=== PATIENT | male | born 1970 | race Caucasian/White ===

== ENCOUNTER 2017-02-02 07:32 | Inpatient (IN) | payer MEDICAID ==
[~2017-02-02] VITALS: Ht 170.2 cm; Wt 74.2 kg
[2017-02-02] VITALS (24 sets, daily range): BP systolic 114–152; BP diastolic 52–75; PULSE 70–92; RESP 12–25; TEMP 98.6; Ht 170.2 cm; Wt 74.2 kg
--- NOTE | 2017-02-02 08:36 | RADRPT ---
PROCEDURE: CT abdomen and pelvis without contrast. CLINICAL INDICATION: Abdominal pain. TECHNIQUE: CT scan of the abdomen and pelvis without contrast was performed on a multi-slice CT [facility] . Sagittal and coronal reformatted images were obtained from the axial source images. One or more of the following dose reduction techniques were used: - Automated exposure control. - Adjustment of the mA and/or kV according to patient size. Use of iterative reconstruction technique. DLP 589.2 mGycm. CTDIvol 9.7 mGy COMPARISON: None FINDINGS: The lung bases are clear. There is limited evaluation of the solid viscera for lack of IV contrast. There is a dilated tubular structure extending from the cecum consistent with a likely enlarged appe ndix and measures up to 12 mm in diameter. It has adjacent trace fat stranding and fluid. There is no CT evidence for free air or organized fluid collection to suggest perforation at this time. Th ere is no evidence of an obstruction. The appendix is located inferior to the cecum along the infer ior pericolic gutter. There is normal density of the liver with no gross focal lesion or biliary ductal dilatation. The gallbladder is unremarkable without inflammation. The spleen is unremarkable without mass. The adrenal glands are within normal limits without mass. The kidneys are symmetric bilaterally with no evidence of renal or ureteral calculi. There is no hy dronephrosis or perinephric stranding. The pancreas is unremarkable without focal lesion or surrounding inflammatory changes. There are no enlarged lymph nodes. There is a calcified lymph nodes seen anterior to the IVC. The aorta is unremarkable and there is no acute osseous abnormality. Degenerative changes are seen i n the lumbar spine. The prostate is grossly unremarkable. There are trace bilateral fat containing inguinal hernias pres ent. IMPRESSION: Findings are consistent with acute appendicitis. The appendix is located inferior to the cecum and measures up to 12 mm in diameter. There is no CT evidence of perforation or abscess at this time. No evidence of renal or ureteral calculi or hydronephrosis. Trace bilateral fat containing inguinal hernias are present. RPTAT: AA .Carmen Mix MD, MD Date Time Electronically viewed and signed by .Carmen Mix MD, MD on 02/02/2017 08:21 .[place]
[2017-02-02] MEDS ORDERED: CEFTRIAXONE 1 GM/50 ML (PMX) 50 ML IVPB ONE (09:00)
[2017-02-02] MEDS ORDERED: SOD CHLORIDE 0.9% 1,000 ML IV ONE ×2 (09:00)
[2017-02-02] MEDS ORDERED: metroNIDAZOLE 500 MG/NS (PMX) 100 ML IVPB ONE (09:00)
--- NOTE | 2017-02-02 09:33 | ERD ---
ER Documentation Chief Complaint Chief Complaint RLQ ABD PAIN, NAUSEA, VOMITING HPI This 46-year-old male presents with abdominal pain. The pain began as sharp pain in his epigastrium and umbilical region yesterday and is moved to his right lower quadrant today. He has had a few episodes of nonbloody, nonbilious vomiting. Made worse by palpation and any movement. ROS All systems reviewed and are negative except as per history of present illness. Allergies Allergies: Coded Allergies: No Known Drug Allergies (Verified Allergy, Unknown, 02/02/17) PMhx/Soc Medical and Surgical Hx: pt denies Medical Hx, pt denies Surgical Hx Hx Alcohol Use: Yes Hx Substance Use: No Hx Tobacco Use: No Physical Exam Vitals Vital Signs Date Time Temp Pulse Resp B/P Pulse Ox O2 Delivery O2 Flow Rate FiO2 02/02/17 07:38 99.7 59 18 146/72 98 Physical Exam Const: [] Moderate distress Head: Atraumatic Eyes: Normal Conjunctiva ENT: Normal External Ears, Nose and Mouth. Neck: Full range of motion..~ No meningismus. Resp: Clear to auscultation bilaterally Cardio: Regular rate and rhythm, no murmurs Abd: Soft, moderate to severe right lower quadrant tenderness with mild voluntary guarding, non distended. Normal bowel sounds Skin: No petechiae or rashes Ext: No cyanosis, or edema Neur: Awake and alert and oriented 3, no focal deficits Psych: Normal Mood and Affect Result Diagram: 02/02/17 0824 02/02/17 0824 Results 24 hrs Laboratory Tests Test 02/02/17 08:18 02/02/17 08:24 Urine Color YELLOW Urine Clarity CLEAR Urine pH 5.0 Urine Specific [place] 1.033 Urine Ketones 1+mg/dL Urine Nitrite NEGATIVEmg/dL Urine Bilirubin NEGATIVEmg/dL Urine Urobilinogen NEGATIVEmg/dL Urine Leukocyte Esterase NEGATIVELeu/ul Urine Hemoglobin NEGATIVEmg/dL Urine Glucose 2+mg/dL Urine Total Protein NEGATIVEmg/dl White Blood Count 16.610^3/ul Red Blood Count 4.8410^6/ul Hemoglobin 14.4g/dl Hematocrit 43.6% Mean Corpuscular Volume 90.1fl Mean Corpuscular Hemoglobin 29.8pg Mean Corpuscular Hemoglobin Concent 33.0g/dl Red Cell Distribution Width 12.7% Platelet Count 25250^3/UL Mean Platelet Volume 11.2fl Neutrophils % 90.7% Lymphocytes % 3.0% Monocytes % 5.6% Eosinophils % 0.0% Basophils % 0.1% Nucleated Red Blood Cells % 0.0/100WBC Neutrophils # 15.010^3/ul Lymphocytes # 0.510^3/ul Monocytes # 0.910^3/ul Eosinophils # 0.010^3/ul Basophils # 0.010^3/ul Nucleated Red Blood Cells # 0.010^3/ul Sodium Level 141mmol/L Potassium Level 3.5mmol/L Chloride Level 103mmol/L Carbon Dioxide Level 27mmol/L Anion Gap 15 Blood Urea Nitrogen 18mg/dl Creatinine 0.73mg/dl Glucose Level 139mg/dl Calcium Level 8.9mg/dl Total Bilirubin 0.7mg/dl Direct Bilirubin 0.00mg/dl Indirect Bilirubin 0.7mg/dl Aspartate Amino Transf (AST/SGOT) 23IU/L Alanine Aminotransferase (ALT/SGPT) 33IU/L Alkaline Phosphatase 105IU/L Total Protein 7.6g/dl Albumin 4.6g/dl Globulin 3.00g/dl Albumin/Globulin Ratio 1.53 Lipase 18U/L Current Medications Medications (Trade) Dose Ordered Sig/Sophia Route PRN Reason Start Time Stop Time Status Last Admin Dose Admin Sodium Chloride 1,000 ml @ 1,000 mls/hr Q1H ONCE IV 02/02/17 09:00 02/02/17 09:59 02/02/17 08:59 Sodium Chloride 1,000 ml @ 1,000 mls/hr Q1H ONCE IV 02/02/17 09:00 02/02/17 09:59 Ceftriaxone Sodium 50 ml @ 100 mls/hr ONCE ONCE IVPB 02/02/17 09:00 02/02/17 09:29 02/02/17 08:59 Metronidazole (Flagyl 500 Mg (Pmx)) 100 ml @ 100 mls/hr ONCE ONCE IVPB 02/02/17 09:00 02/02/17 09:59 Procedures/MDM Acute appendicitis. Elevated white blood cell count and inflamed appendicitis on CT with physical exam findings consistent with appendicitis. Patient was given 2 L of normal saline as well as morphine and Zofran. Required additional dose of morphine as the pain returned. I spoke with Dr. Ness, general surgeon on-call, who accepts the case. Be admitted to the medical surgical floor pending surgery. CT abdomen pelvis interpretation: 1.2 cm dilated appendix with surrounding mild fat stranding. No bowel obstruction, no free air to suggest perforation, no fractures Departure Diagnosis: Primary Impression: Acute appendicitis Condition: Serious STANISLAV JANE DO Feb 02, 2017 09:33
[2017-02-02] MEDS ORDERED: morphine 10 MG INJ IV ONE (10:00)
[2017-02-02] MEDS ORDERED: ONDANSETRON 4 MG INJ IV PRN ×3 (10:30→18:30)
[2017-02-02] MEDS ORDERED: ACETAMINOPHEN 325 MG TAB PO PRN (10:30)
[2017-02-02] MEDS ORDERED: NACL 0.9% 3 ML SYG IV SCH (13:30)
[2017-02-02] MEDS ORDERED: MAGNESIUM HYDROXIDE 30ML CUP PO PRN (13:30)
[2017-02-02] MEDS ORDERED: BISACODYL (EC) 5 MG TAB PO PRN (13:30)
[2017-02-02] MEDS ORDERED: DOCUSATE SODIUM 100 MG CAP PO PRN (13:30)
[2017-02-02] MEDS ORDERED: morphine 2 MG INJ IV PRN ×2 (13:30→18:30)
[2017-02-02] MEDS ORDERED: HYDROCODONE/APAP (5/325) TAB PO PRN (13:30)
--- NOTE | 2017-02-02 14:32 | HP ---
Date/Time of Note Date/Time of Note DATE: 02/02/17 TIME: 14:26 Assessment/Plan VTE Prophylaxis VTE Prophylaxis Intervention: SCD's Lines/Catheters IV Catheter Type (from Nrsg): Saline Lock Assessment/Plan Assessment/Plan 46 yo M with no chronic medical problems here with 1 day of abd pain, imaging with appendicitis. PLAN -gen surg to see. Pt without any known hx of CAD, CVA, CHF, DM2 or CKD. Pt states he can climb a flight of stairs without stopping (able to complete >4 mets of activity) therefore no cardiac testing is indicated prior to this intermediate risk surgical procedure. -IVFs -NPO -pain control -given no perforation see on imaging, no abx indicated beyond perioperative dose HPI/ROS Admit Date/Time Admit Date/Time Feb 02, 2017 at 10:16 Hx of Present Illness CC abd pain HPI 46 yo M with no known chronic medical problems presented with 1 day of abd pain , imaging in the ER with appendicitis. 10pROS as per HPI PMH/Family/Social Social History works in a [employer] shop Smoking Status: Never smoker Exam/Review of Systems Vital Signs Vitals Vital Signs Date Time Temp Pulse Resp B/P Pulse Ox O2 Delivery O2 Flow Rate FiO2 02/02/17 11:51 98.6 63 20 132/75 98 Room Air Exam Exam nad EOMI MMM no mrg lungs clear abd soft no edema no rashes CT with acute appendicitis Labs Result Diagram: 02/02/1782302/02/1724 Medications Medications Current Medications Acetaminophen (Tylenol Tab) 650 mg Q6H PRN PO PAIN LEVEL 1-3 OR FEVER; Start 02/02/17 at 13:30 Acetaminophen/ Hydrocodone Bitart ([place] (5/325)) 1 tab Q6H PRN PO MODERATE PAIN LEVEL 4-6; Start 02/02/17 at 13:30 Morphine Sulfate (morphine) 2 mg Q4H PRN IV SEVERE PAIN LEVEL 7-10; Start at 13:30 Docusate Sodium (Colace) 100 mg Q12H PRN PO CONSTIPATION; Start 02/02/17 at 13 :30 Magnesium Hydroxide (Milk Of Mag) 30 ml DAILY PRN PO CONSTIPATION; Start 02/02 at 13:30 Bisacodyl (Dulcolax) 5 mg DAILY PRN PO CONSTIPATION; Start 02/02/17 at 13:30 STORM SLATER MD Feb 02, 2017 14:32
[2017-02-02] MEDS: SOD CHLORIDE 0.9% 1,000 ML IV SCH ×2 (14:44→22:30)
[2017-02-02] MEDS ORDERED: THROMBIN(HUM PLAS)/FIBRINOG/CA 5 ML VIAL TOP ONE (15:19)
[2017-02-02] MEDS ORDERED: POLYMYXIN/BACITRACIN 1L IRRIG ONE (15:24)
[2017-02-02] MEDS ORDERED: BUPIVACAINE 0.5%/EPI (SDV) 30 ML INJ ONE (16:47)
[2017-02-02] MEDS ORDERED: GLYCOPYRROLATE 1 MG INJ ONE (17:12)
[2017-02-02] MEDS ORDERED: NEOSTIGMINE 3 MG/3 ML SYRINGE ONE (17:12)
[2017-02-02] MEDS ORDERED: ROCURONIUM 50 MG INJ ONE (17:12)
[2017-02-02] MEDS ORDERED: PROPOFOL 20 ML ONE (17:12)
[2017-02-02] MEDS ORDERED: MEPERIDINE 100 MG INJ ONE (17:12)
[2017-02-02] MEDS ORDERED: LIDOCAINE 2% (SDV) 5 ML INJ ONE (17:12)
[2017-02-02] MEDS ORDERED: SUCCINYLCHOLINE CHLORIDE 100 MG/5 ML SYG IV ONE (17:12)
--- NOTE | 2017-02-02 17:14 | CONS ---
Date/Time of Note Date/Time of Note DATE: 02/02/17 TIME: 17:10 Assessment/Plan Assessment/Plan Additional Assessment/Plan Acute appendicitis Plan: Laparoscopic appendectomy, possible open. I have discussed the procedure , outcomes, indications, alternatives and risks in detail with the patient and who have an excellent understanding of the nature of his situation and agreed to the proposed plan of therapy as outlined. Consultation Date/Type/Reason Admit Date/Time Feb 02, 2017 at 10:16 Date of Consultation: Feb 02, 2017 Reason for Consultation Acute appendicitis Hx of Present Illness The patient is an otherwise healthy 46-year-old gentleman who presents with a 1 day history of abdominal pain which had intensified in severity than localized to the right lower quadrant. In the emergency room he was noted to have a tender right lower quadrant, an elevated white blood cell count of 16,[address] compatible with acute appendicitis. The patient was admitted and surgical consultation was requested in that regard. He has had no fevers chills or change in bowel or bladder habits. Constitutional: no complaints Eyes: no complaints ENT: no complaints Respiratory: no complaints Cardiovascular: no complaints Gastrointestinal: pain (Right lower quadrant) Genitourinary: no complaints Musculoskeletal: no complaints Skin: no complaints Neurologic: no complaints Endocrine: no complaints Lymphatic: no complaints Psychological: no complaints Immunologic: no complaints Past Medical History Medical History: no pertinent history Past Surgical History Past Surgical Hx: no surgical history Family History Significant Family History: no pertinent family hx Social History Smoking Status: Never smoker Exam/Review of Systems Vital Signs Vitals Vital Signs Date Time Temp Pulse Resp B/P Pulse Ox O2 Delivery O2 Flow Rate FiO2 02/02/17 15:00 100.0 02/02/17 11:51 63 20 132/75 98 Room Air Exam Constitutional: alert, oriented Psych: no complaints Head: normocephalic Eyes: nl conjunctiva ENMT: nl external ears & nose Neck: supple Respiratory: clear to auscultation Cardiovascular: regular rate and rhythm Gastrointestinal: tender (Right lower quadrant with guarding but no rebound) Genitourinary - Male: nl penis Musculoskeletal: nl extremities to inspection Extremities: normal pulses Skin: nl turgor Lymph: nl lymph nodes Results Result Diagram: 02/02/17 0824 02/02/17 0824 Results 24 hrs Laboratory Tests Test 02/02/17 08:18 02/02/17 08:24 Urine Color YELLOW Urine Clarity CLEAR Urine pH 5.0 Urine Specific [place] 1.033 H Urine Ketones 1+ H Urine Nitrite NEGATIVE Urine Bilirubin NEGATIVE Urine Urobilinogen NEGATIVE Urine Leukocyte Esterase NEGATIVE Urine Hemoglobin NEGATIVE Urine Glucose 2+ H Urine Total Protein NEGATIVE White Blood Count 16.6 H Red Blood Count 4.84 Hemoglobin 14.4 Hematocrit 43.6 Mean Corpuscular Volume 90.1 Mean Corpuscular Hemoglobin 29.8 Mean Corpuscular Hemoglobin Concent 33.0 Red Cell Distribution Width 12.7 Platelet Count 207 Mean Platelet Volume 11.2 H Neutrophils % 90.7 H Lymphocytes % 3.0 L Monocytes % 5.6 Eosinophils % 0.0 Basophils % 0.1 Nucleated Red Blood Cells % 0.0 Neutrophils # 15.0 H Lymphocytes # 0.5 L Monocytes # 0.9 Eosinophils # 0.0 Basophils # 0.0 Nucleated Red Blood Cells # 0.0 Sodium Level 141 Potassium Level 3.5 Chloride Level 103 Carbon Dioxide Level 27 Anion Gap 15 Blood Urea Nitrogen 18 Creatinine 0.73 Glucose Level 139 Calcium Level 8.9 Total Bilirubin 0.7 Direct Bilirubin 0.00 Indirect Bilirubin 0.7 Aspartate Amino Transf (AST/SGOT) 23 Alanine Aminotransferase (ALT/SGPT) 33 Alkaline Phosphatase 105 Total Protein 7.6 Albumin 4.6 Globulin 3.00 Albumin/Globulin Ratio 1.53 Lipase 18 L Medications Medications Current Medications Acetaminophen (Tylenol Tab) 650 mg Q6H PRN PO PAIN LEVEL 1-3 OR FEVER; Start 02/02/17 at 13:30 Acetaminophen/ Hydrocodone Bitart ([place] (5/325)) 1 tab Q6H PRN PO MODERATE PAIN LEVEL 4-6; Start 02/02/17 at 13:30 Morphine Sulfate (morphine) 2 mg Q4H PRN IV SEVERE PAIN LEVEL 7-10; Start at 13:30 Docusate Sodium (Colace) 100 mg Q12H PRN PO CONSTIPATION; Start 02/02/17 at 13 :30 Magnesium Hydroxide (Milk Of Mag) 30 ml DAILY PRN PO CONSTIPATION; Start 02/02 at 13:30 Bisacodyl 5 mg 5 mg DAILY PRN PO CONSTIPATION; Start 02/02/17 at 13:30 Sodium Chloride (NS) 1,000 ml @ 125 mls/hr Q8H IV Last administered on t 14:44; Admin Dose 125 MLS/HR; Start 02/02/17 at 14:30 JASON SMITH MD Feb 02, 2017 17:14
[2017-02-02] MEDS ORDERED: CEFAZOLIN 1 GM INJ ONE (17:29)
[2017-02-02] MEDS ORDERED: DIPHENHYDRAMINE 50 MG INJ IV PRN (17:30)
[2017-02-02] MEDS ORDERED: HYDROmorphONE (0.2 MG/ML) 10ML SYG IV PRN ×3 (17:30)
[2017-02-02] MEDS ORDERED: MEPERIDINE 25 MG INJ IV PRN (17:30)
[2017-02-02] MEDS ORDERED: MIDAZOLAM 1 MG/ML 2 ML INJ IV PRN (17:30)
[2017-02-02] MEDS ORDERED: hydrALAzine 20 MG INJ IV PRN (17:30)
[2017-02-02] MEDS ORDERED: LABETALOL HCL 20MG INJ IV PRN (17:30)
[2017-02-02] MEDS ORDERED: OXYCODONE/ACETAMINOPHEN (5/325) TAB PO PRN ×3 (17:30→18:30)
[2017-02-02] MEDS ORDERED: EPHEDrine SULFATE 50 MG/5 ML SYG IV PRN (17:30)
[2017-02-02] MEDS ORDERED: FENTAnyl 50 MCG/ML VIAL IV PRN ×3 (17:30)
[2017-02-02] MEDS ORDERED: METOCLOPRAMIDE 10 MG INJ IV PRN (17:30)
[2017-02-02] MEDS ORDERED: BUPIVACAINE 0.5%/EPI (SDV) 30 ML INJ INJ ONE (17:57)
--- NOTE | 2017-02-02 18:18 | OPR ---
Date/Time of Note Date/Time of Note DATE: 02/02/17 TIME: 18:11 Operative Report Procedure Date: Feb 02, 2017 Preoperative Diagnosis Acute appendicitis Postoperative Diagnosis Acute appendicitis with localized peritonitis Operation/Procedure Performed Laparoscopic appendectomy Surgeon Jason Smith MD Textile Technologist None Anesthesia Type: general Anesthesiologist: ERMELINDA RIVERA MD Estimated Blood Loss: 0 - 10 ml's Transfusion none Specimen Appendix and C&S Grafts/Implants none Tubes/Drains None Complications none Pt Condition Post Procedure: stable Indications Localized peritonitis Procedure Description After satisfactory general endotracheal anesthesia was achieved, the abdomen was prepped and draped in the usual fashion. The abdomen was insufflated with carbon dioxide through a very needle to 15 mmHg pressure. The Veress needle was removed and the umbilical incision extended to 5 mm through which a 5 mm trocar was placed. A 5 mm 0 lens was placed. Laparoscopy showed an acutely inflamed intraperitoneal appendix with localized peritonitis. Under direct visualization a 5 mm suprapubic trocar was placed as well as a 12 mm trocar midway between the umbilicus and the xiphoid. The appendix was mobilized. A window was made in the mesoappendix through which a vascular linear cutter was placed across the base of the cecum, closed and fired disconnecting the appendix from the cecum. 2 more firings of the vascular linear cutter across the mesoappendix freed the appendix which was placed into an Endo Catch removed by the 12 mm port site. Hemostasis of the staple lines was total. The appendix was cultured and submitted. The abdomen was then irrigated with a liter of saline. The fascial defect was closed with a #1 Vicryl placed with the assistance of a Errol Dawna device. The abdomen was then desufflated and the trochars were removed. The skin punctures were infiltrated with 30 cc of 0.5% Marcaine with epinephrine, and closed with keke. Sponge and needle counts were reported as correct 2. JASON SMITH MD Feb 02, 2017 18:18
[2017-02-02] MEDS: OXYCODONE/ACETAMINOPHEN (5/325) TAB PO PRN (20:49)
[2017-02-03] VITALS (9 sets, daily range): BP systolic 107–125; BP diastolic 56–70; PULSE 74–85; RESP 18–20
[2017-02-03] MEDS ORDERED: PIPER-TAZO 3.375 GM IV (PMX) 100 ML IVPB ONE (01:30)
[2017-02-03] MEDS: SOD CHLORIDE 0.9% 1,000 ML IV SCH ×4 (05:05→22:30)
[2017-02-03] MEDS: OXYCODONE/ACETAMINOPHEN (5/325) TAB PO PRN ×2 (05:20→19:21)
[2017-02-03] MEDS: PIPER-TAZO 3.375 GM IV (PMX) 100 ML IVPB SCH ×3 (07:34→22:05)
[2017-02-03] MEDS: ACETAMINOPHEN 325 MG TAB PO PRN ×3 (08:58→22:05)
--- NOTE | 2017-02-03 12:28 | PN ---
Date/Time of Note Date/Time of Note DATE: 02/03/17 TIME: 12:26 Assessment/Plan VTE Prophylaxis VTE Prophylaxis Intervention: SCD's Lines/Catheters IV Catheter Type (from Nrsg): Peripheral IV Assessment/Plan Assessment/Plan 46 yo M presented with abd pain, found to have appendicitis with localized peritonitis. sp lap appy 02.02 PLAN abx as per gen surg-->convert to PO when ok'd by gen surg diet per gen surg pain control DVT prophx Subjective 24 Hr Interval Summary Free Text/Dictation Slight elevated temperature post op. Sleeping this morning Exam/Review of Systems Vital Signs Vitals Vital Signs Date Time Temp Pulse Resp B/P Pulse Ox O2 Delivery O2 Flow Rate FiO2 02/03/17 08:49 Nasal Cannula 2.0 02/03/17 07:15 101.0 87 18 118/68 92 Intake and Output 02/02/17 02/02/17 02/03/17 15:00 23:00 07:00 Intake Total 1050 ml 1190 ml Output Total 10 ml 470 ml Balance 1040 ml 720 ml Exam nad no mrg lungs clear no rashes no edema WBCs better, culture result noted Results Result Diagram: 02/03/17 0548 02/03/17 0548 Results 24 hrs Laboratory Tests Test 02/03/17 05:48 White Blood Count 11.9 #H Red Blood Count 4.04 L Hemoglobin 12.3 L Hematocrit 37.3 L Mean Corpuscular Volume 92.3 Mean Corpuscular Hemoglobin 30.4 Mean Corpuscular Hemoglobin Concent 33.0 Red Cell Distribution Width 13.2 Platelet Count 164 # Mean Platelet Volume 11.4 H Neutrophils % 86.2 H Lymphocytes % 7.3 L Monocytes % 5.6 Eosinophils % 0.1 Basophils % 0.3 Nucleated Red Blood Cells % 0.0 Neutrophils # 10.2 H Lymphocytes # 0.9 Monocytes # 0.7 Eosinophils # 0.0 Basophils # 0.0 Nucleated Red Blood Cells # 0.0 Sodium Level 140 Potassium Level 4.3 Chloride Level 106 Carbon Dioxide Level 29 Anion Gap 9 # Blood Urea Nitrogen 14 Creatinine 0.87 Glucose Level 117 Calcium Level 8.1 L Medications Medications Current Medications Acetaminophen (Tylenol Tab) 650 mg Q6H PRN PO PAIN LEVEL 1-3 OR FEVER Last administered on 02/03/17t 08:58; Admin Dose 650 MG; Start 02/02/17 at 13:30 Acetaminophen/ Hydrocodone Bitart ([place] (5/325)) 1 tab Q6H PRN PO MODERATE PAIN LEVEL 4-6; Start 02/02/17 at 13:30 Morphine Sulfate (morphine) 2 mg Q4H PRN IV SEVERE PAIN LEVEL 7-10; Start at 13:30 Docusate Sodium (Colace) 100 mg Q12H PRN PO CONSTIPATION; Start 02/02/17 at 13 :30 Magnesium Hydroxide (Milk Of Mag) 30 ml DAILY PRN PO CONSTIPATION; Start 02/02 at 13:30 Bisacodyl 5 mg 5 mg DAILY PRN PO CONSTIPATION; Start 02/02/17 at 13:30 Sodium Chloride (NS) 1,000 ml @ 125 mls/hr Q8H IV Last administered on 05:05; Admin Dose 125 MLS/HR; Start 02/02/17 at 14:30 Oxycodone/ Acetaminophen (Percocet (5/ 325)) 1 tab Q4H PRN PO MILD PAIN (1-3); Start 02/02/17 at 18:30 Oxycodone/ Acetaminophen (Percocet (5/ 325)) 2 tab Q4H PRN PO MODERATE PAIN (4- 6) Last administered on 02/03/17 05:20; Admin Dose 2 TAB; Start 02/02/17 at 18 :30 Ondansetron HCl 4 mg 4 mg Q6H PRN IV NAUSEA; Start 02/02/17 at 18:30 Piperacillin Sod/ Tazobactam Sod (Zosyn 3.375gm/ 100 ml (Pmx)) 100 ml @ 200 mls /hr Q8 IVPB Last administered on 02/03/17 07:34; Admin Dose 200 MLS/HR; Start 02/03/17 at 07:00 STORM SLATER MD Feb 03, 2017 12:28
--- NOTE | 2017-02-03 14:14 | PN ---
Date/Time of Note Date/Time of Note DATE: 02/03/17 TIME: 14:13 Assessment/Plan Lines/Catheters IV [facility] Peripheral IV Assessment/Plan Chief Complaint/Hosp Course Improving nicely postoperatively abdominal examination is benign Leukocytosis improved Plan: Should be able to discharge tomorrow with p.o. antibiotics Problems: Subjective 24 Hr Interval Summary Postoperative day #1 Markedly symptomatically improved T-max 101.7 Exam/Review of Systems Vital Signs Vitals Vital Signs Date Time Temp Pulse Resp B/P Pulse Ox O2 Delivery O2 Flow Rate FiO2 02/03/17 13:49 101.7 90 18 113/61 95 02/03/17 08:49 Nasal Cannula 2.0 Intake and Output 02/02/17 02/02/17 02/03/17 15:00 23:00 07:00 Intake Total 1050 ml 1190 ml Output Total 10 ml 470 ml Balance 1040 ml 720 ml Results Result Diagram: 02/03/17 0548 02/03/17 0548 JASON SMITH MD Feb 03, 2017 14:14
--- NOTE | 2017-02-03 14:14 | PN ---
Date/Time of Note Date/Time of Note DATE: 02/03/17 TIME: 14:13 Assessment/Plan Lines/Catheters IV Catheter Type (from [facility]): Peripheral IV Assessment/Plan Chief Complaint/Hosp Course Improving nicely postoperatively abdominal examination is benign Leukocytosis improved Plan: Should be able to discharge tomorrow with p.o. antibiotics Problems: Subjective 24 Hr Interval Summary Postoperative day #1 Markedly symptomatically improved T-max 101.7 Exam/Review of Systems Vital Signs Vitals Vital Signs Date Time Temp Pulse Resp B/P Pulse Ox O2 Delivery O2 Flow Rate FiO2 02/03/17 13:49 101.7 90 18 113/61 95 02/03/17 08:49 Nasal Cannula 2.0 Intake and Output 02/02/17 02/02/17 02/03/17 15:00 23:00 07:00 Intake Total 1050 ml 1190 ml Output Total 10 ml 470 ml Balance 1040 ml 720 ml Results Result Diagram: 02/03/17 0548 02/03/17 0548 JASON SMITH MD Feb 03, 2017 14:14
[2017-02-04 01:23] VITALS: BP 116/58; RESP 20
[2017-02-04] MEDS: SOD CHLORIDE 0.9% 1,000 ML IV SCH ×3 (01:33→09:30)
[2017-02-04] MEDS: PIPER-TAZO 3.375 GM IV (PMX) 100 ML IVPB SCH ×2 (05:55→14:07)
[2017-02-04 07:26] VITALS: BP 124/64; RESP 20
--- NOTE | 2017-02-04 07:32 | PN ---
Date/Time of Note Date/Time of Note DATE: 02/04/17 TIME: 07:30 Assessment/Plan Lines/Catheters IV Catheter Type (from [facility]): Peripheral IV Assessment/Plan Chief Complaint/Hosp Course Improving nicely postoperatively abdominal examination is benign Leukocytosis improved Plan: Should be able to discharge tomorrow with p.o. antibiotics Problems: Assessment/Plan Although patient is symptomatically improved and abdominal examination is benign , and leukocytosis resolved, fever persists. Plan: Continue medical management Subjective 24 Hr Interval Summary Postoperative day #2 Temperature is 101.7. T-max was 103 yesterday Exam/Review of Systems Vital Signs Vitals Vital Signs Date Time Temp Pulse Resp B/P Pulse Ox O2 Delivery O2 Flow Rate FiO2 02/04/17 07:26 101.3 89 20 124/64 91 02/03/17 08:49 Nasal Cannula 2.0 Intake and Output 02/03/17 02/03/17 02/04/17 15:00 23:00 07:00 Intake Total 100 ml 2500 ml 2235 ml Output Total 1600 ml 400 ml Balance 100 ml 900 ml 1835 ml Results Result Diagram: 02/04/17 0523 02/03/17 0548 JASON SMITH MD Feb 04, 2017 07:32
--- NOTE | 2017-02-04 07:32 | PN ---
Date/Time of Note Date/Time of Note DATE: 02/04/17 TIME: 07:30 Assessment/Plan Lines/Catheters IV Catheter Type (from [facility]): Peripheral IV Assessment/Plan Chief Complaint/Hosp Course Improving nicely postoperatively abdominal examination is benign Leukocytosis improved Plan: Should be able to discharge tomorrow with p.o. antibiotics Problems: Assessment/Plan Although patient is symptomatically improved and abdominal examination is benign , and leukocytosis resolved, fever persists. Plan: Continue medical management Subjective 24 Hr Interval Summary Postoperative day #2 Temperature is 101.7. T-max was 103 yesterday Exam/Review of Systems Vital Signs Vitals Vital Signs Date Time Temp Pulse Resp B/P Pulse Ox O2 Delivery O2 Flow Rate FiO2 02/04/17 07:26 101.3 89 20 124/64 91 02/03/17 08:49 Nasal Cannula 2.0 Intake and Output 02/03/17 02/03/17 02/04/17 15:00 23:00 07:00 Intake Total 100 ml 2500 ml 2235 ml Output Total 1600 ml 400 ml Balance 100 ml 900 ml 1835 ml Results Result Diagram: 02/04/17 0523 02/03/17 0548 JASON SMITH MD Feb 04, 2017 07:32
[2017-02-04] MEDS: ACETAMINOPHEN 325 MG TAB PO PRN ×3 (08:08→22:17)
--- NOTE | 2017-02-04 13:16 | PN ---
Date/Time of Note Date/Time of Note DATE: 02/04/17 TIME: 13:15 Assessment/Plan VTE Prophylaxis VTE Prophylaxis Intervention: SCD's Lines/Catheters IV Catheter Type (from Nrsg): Peripheral IV Assessment/Plan Assessment/Plan 46 yo M presented with abd pain, found to have appendicitis with localized peritonitis. sp lap appy 02.02 PLAN abx as per gen surg-->convert to PO when ok'd by gen surg diet per gen surg pain control DVT prophx Subjective 24 Hr Interval Summary Free Text/Dictation still febrile Exam/Review of Systems Vital Signs Vitals Vital Signs Date Time Temp Pulse Resp B/P Pulse Ox O2 Delivery O2 Flow Rate FiO2 02/04/17 09:33 100.8 02/04/17 09:00 Nasal Cannula 2.0 02/04/17 07:26 89 20 124/64 91 Intake and Output 02/03/17 02/03/17 02/04/17 15:00 23:00 07:00 Intake Total 100 ml 2500 ml 2235 ml Output Total 1600 ml 400 ml Balance 100 ml 900 ml 1835 ml Exam sleeping respirations nonlabored no abd distension no edema no rashes Results Result Diagram: 02/04/17 0523 02/03/17 0548 Results 24 hrs Laboratory Tests Test 02/04/17 05:23 White Blood Count 9.5 # Red Blood Count 4.10 L Hemoglobin 12.4 L Hematocrit 37.7 L Mean Corpuscular Volume 92.0 Mean Corpuscular Hemoglobin 30.2 Mean Corpuscular Hemoglobin Concent 32.9 Red Cell Distribution Width 12.8 Platelet Count 158 Mean Platelet Volume 11.8 H Neutrophils % 83.1 H Lymphocytes % 9.4 L Monocytes % 6.7 Eosinophils % 0.1 Basophils % 0.2 Nucleated Red Blood Cells % 0.0 Neutrophils # 7.9 H Lymphocytes # 0.9 Monocytes # 0.6 Eosinophils # 0.0 Basophils # 0.0 Nucleated Red Blood Cells # 0.0 Medications Medications Current Medications Acetaminophen (Tylenol Tab) 650 mg Q6H PRN PO PAIN LEVEL 1-3 OR FEVER Last administered on 02/04/17t 08:08; Admin Dose 650 MG; Start 02/02/17 at 13:30 Acetaminophen/ Hydrocodone Bitart ([place] (5/325)) 1 tab Q6H PRN PO MODERATE PAIN LEVEL 4-6; Start 02/02/17 at 13:30 Morphine Sulfate (morphine) 2 mg Q4H PRN IV SEVERE PAIN LEVEL 7-10; Start at 13:30 Docusate Sodium (Colace) 100 mg Q12H PRN PO CONSTIPATION; Start 02/02/17 at 13 :30 Magnesium Hydroxide (Milk Of Mag) 30 ml DAILY PRN PO CONSTIPATION; Start 02/02 at 13:30 Bisacodyl (Dulcolax) 5 mg DAILY PRN PO CONSTIPATION; Start 02/02/17 at 13:30 Oxycodone/ Acetaminophen (Percocet (5/ 325)) 1 tab Q4H PRN PO MILD PAIN (1-3); Start 02/02/17 at 18:30 Oxycodone/ Acetaminophen (Percocet (5/ 325)) 2 tab Q4H PRN PO MODERATE PAIN (4- 6) Last administered on 02/03/17 19:21; Admin Dose 2 TAB; Start 02/02/17 at 18 :30 Ondansetron HCl 4 mg 4 mg Q6H PRN IV NAUSEA; Start 02/02/17 at 18:30 Piperacillin Sod/ Tazobactam Sod (Zosyn 3.375gm/ 100 ml (Pmx)) 100 ml @ 200 mls /hr Q8 IVPB Last administered on 02/04/17 05:55; Admin Dose 200 MLS/HR; Start 02/03/17 at 07:00 STORM SLATER MD Feb 04, 2017 13:16
[2017-02-04 14:38] VITALS: BP 110/60; RESP 26
[2017-02-04 19:28] VITALS: BP 128/71; RESP 20
[2017-02-04] MEDS: PIPER-TAZO 3.375 GM IV (PMX) 50 ML IVPB SCH (22:18)
[2017-02-05 01:26] VITALS: BP 127/72; RESP 20
[2017-02-05] MEDS: PIPER-TAZO 3.375 GM IV (PMX) 50 ML IVPB SCH ×3 (06:01→22:50)
[2017-02-05 08:09] VITALS: BP 118/65; RESP 18
--- NOTE | 2017-02-05 10:34 | PN ---
Date/Time of Note Date/Time of Note DATE: 02/05/17 TIME: 10:32 Assessment/Plan Lines/Catheters IV Catheter Type (from [facility]): Saline Lock Assessment/Plan Chief Complaint/Hosp Course Abdominal examination remains benign Plan: Repeat CBC today CT scan of abdomen and pelvis today Problems: Assessment/Plan CT scan abdomen and pelvis today. Continue medical management Subjective 24 Hr Interval Summary Postoperative day #3 Although markedly improved, still has fevers. His T-max yesterday was 102.7 Exam/Review of Systems Vital Signs Vitals Vital Signs Date Time Temp Pulse Resp B/P Pulse Ox O2 Delivery O2 Flow Rate FiO2 02/05/17 08:09 98.5 89 18 118/65 94 02/04/17 09:00 Nasal Cannula 2.0 Intake and Output 02/04/17 02/04/17 02/05/17 15:00 23:00 07:00 Intake Total 1180 ml 1110 ml 50 ml Output Total 950 ml 400 ml Balance 1180 ml 160 ml -350 ml Results Result Diagram: 02/04/17 0523 02/03/17 0548 JASON SMITH MD Feb 05, 2017 10:34
[2017-02-05] MEDS ORDERED: IOHEXOL 14.3 MG(I)/ML (ADULT) BTL PO SCH (11:30)
--- NOTE | 2017-02-05 12:49 | PN ---
Date/Time of Note Date/Time of Note DATE: 02/05/17 TIME: 12:48 Assessment/Plan VTE Prophylaxis VTE Prophylaxis Intervention: SCD's Lines/Catheters IV Catheter Type (from Nrsg): Saline Lock Assessment/Plan Assessment/Plan 46 yo M presented with abd pain, found to have appendicitis with localized peritonitis. sp lap appy 02.[address] ordered by gen surg cont abx regular diet pain control DVT prophx Subjective 24 Hr Interval Summary Free Text/Dictation still febrile but feels ok. eating without issue. +BM Exam/Review of Systems Vital Signs Vitals Vital Signs Date Time Temp Pulse Resp B/P Pulse Ox O2 Delivery O2 Flow Rate FiO2 02/05/17 08:09 98.5 89 18 118/65 94 02/04/17 09:00 Nasal Cannula 2.0 Intake and Output 02/04/17 02/04/17 02/05/17 15:00 23:00 07:00 Intake Total 1180 ml 1110 ml 50 ml Output Total 950 ml 400 ml Balance 1180 ml 160 ml -350 ml Exam nad no mrg lungs clear abd soft no rashes Results Result Diagram: 02/05/17 1053 02/03/17 0548 Results 24 hrs Laboratory Tests Test 02/05/17 10:53 White Blood Count 7.5 # Red Blood Count 4.16 L Hemoglobin 12.2 L Hematocrit 37.7 L Mean Corpuscular Volume 90.6 Mean Corpuscular Hemoglobin 29.3 Mean Corpuscular Hemoglobin Concent 32.4 Red Cell Distribution Width 13.0 Platelet Count 177 Mean Platelet Volume 11.0 H Neutrophils % 77.6 H Lymphocytes % 12.5 L Monocytes % 9.0 Eosinophils % 0.3 Basophils % 0.3 Nucleated Red Blood Cells % 0.0 Neutrophils # 5.9 Lymphocytes # 0.9 Monocytes # 0.7 Eosinophils # 0.0 Basophils # 0.0 Nucleated Red Blood Cells # 0.0 Medications Medications Current Medications Acetaminophen (Tylenol Tab) 650 mg Q6H PRN PO PAIN LEVEL 1-3 OR FEVER Last administered on 02/04/17t 22:17; Admin Dose 650 MG; Start 02/02/17 at 13:30 Acetaminophen/ Hydrocodone Bitart ([place] (5/325)) 1 tab Q6H PRN PO MODERATE PAIN LEVEL 4-6; Start 02/02/17 at 13:30 Morphine Sulfate (morphine) 2 mg Q4H PRN IV SEVERE PAIN LEVEL 7-10; Start at 13:30 Docusate Sodium (Colace) 100 mg Q12H PRN PO CONSTIPATION; Start 02/02/17 at 13 :30 Magnesium Hydroxide (Milk Of Mag) 30 ml DAILY PRN PO CONSTIPATION; Start 02/02 at 13:30 Bisacodyl (Dulcolax) 5 mg DAILY PRN PO CONSTIPATION; Start 02/02/17 at 13:30 Oxycodone/ Acetaminophen (Percocet (5/ 325)) 1 tab Q4H PRN PO MILD PAIN (1-3); Start 02/02/17 at 18:30 Oxycodone/ Acetaminophen (Percocet (5/ 325)) 2 tab Q4H PRN PO MODERATE PAIN (4- 6) Last administered on 02/03/17 19:21; Admin Dose 2 TAB; Start 02/02/17 at 18 :30 Ondansetron HCl 4 mg 4 mg Q6H PRN IV NAUSEA; Start 02/02/17 at 18:30 Piperacillin Sod/ Tazobactam Sod (Zosyn 3.375gm/ 50 ml (Pmx)) 50 ml @ 100 mls/ hr Q8 IVPB Last administered on 02/05/17 06:01; Admin Dose 100 MLS/HR; Start 02/04/17 at 22:00 STORM SLATER MD Feb 05, 2017 12:49
[2017-02-05 14:41] VITALS: BP 116/74; RESP 16
[2017-02-05] MEDS ORDERED: IOHEXOL 300MG/ML 150 ML BTL ONE (17:00)
[2017-02-05] MEDS ORDERED: SOD CHLORIDE 0.9% 100 ML ONE (17:00)
[2017-02-05 19:43] VITALS: BP 117/71; RESP 20
[2017-02-06 01:31] VITALS: BP 122/63; RESP 20
[2017-02-06] MEDS: PIPER-TAZO 3.375 GM IV (PMX) 50 ML IVPB SCH ×3 (05:44→21:28)
[2017-02-06 08:20] VITALS: BP 121/70; PULSE 58; RESP 20
--- NOTE | 2017-02-06 08:59 | RADRPT ---
PROCEDURE: CT Abdomen and Pelvis without contrast. CLINICAL INDICATION: Post appendectomy fever. TECHNIQUE: CT scan of the abdomen and pelvis without contrast was performed on a multidetector hig h-resolution CT scanner. The patient was scanned with oral and intravenous contrast. Coronal and sa gittal reformatted images were obtained from the axial source images. Images were reviewed on a high -resolution PACS workstation. The total exam CTDI equals 9.07 mGy and the total exam DLP equals 533. 13 mGy-cm. Contrast: 100 cc Omnipaque-300. One or more of the following dose reduction techniques were used: - Automated exposure control. - Adjustment of the mA and/or kV according to patient size. - Use of iterative reconstruction technique. COMPARISON: CT 02/02/2017 FINDINGS: CT Abdomen and Pelvis: Lung bases: Interval appearing small bilateral pleural effusions with extensive bilateral lower lobe atelectasis is present. Solid organs: The liver, spleen, pancreas, adrenal glands are unremarkable. Biliary: The gallbladder is present. No evidence of intra or extrahepatic biliary ductal dilatation . GI: The stomach is partially collapsed. Small bowel loops are non dilated. There is thickening of th e ileum proximal to and including the terminal ileum. There is a rounded low attenuation structure a djacent to postsurgical clips inseparable from the medial wall of the cecum and from loops of distal small bowel which measures 3.3 x 4.0 x 5.0 cm. Findings are demonstrated on coronal image 40 and fa vored to represent an abscess. There is thickening of the cecum representing either postoperative an d/or reactive inflammatory changes. : No evidence of hydronephrosis or space occupying renal mass. The urinary bladder is unremarkabl e. Peritoneum: No evidence of ascites or pneumoperitoneum. Lymph nodes: No pathologically enlarged lymphadenopathy. Vascular: Diffuse calcified plaque is present within the abdominal aorta and bilateral common iliac arteries. No evidence of an abdominal aortic aneurysm. Osseous structures: No aggressive appearing osteolytic or osteoblastic lesions are present. IMPRESSION: 1. Right lower quadrant abscess measuring 3.30 x 4.0 x 5.0 cm adjacent to right lower quadrant surgi missy clips. 2. Thickened ileum and cecum representing post operative and/or reactive inflammatory changes. 3. Interval small bilateral pleural effusions with extensive bibasilar atelectasis. Abnormal report: The results of this examination were called by this radiologist to [facility] and discussed with the patient's nurse (Kiah )at 08:52 a.m. on 02/06/2017. RPTAT: HRSR Suzanne Escalante, Physician Date Time Electronically viewed and signed by Suzanne Escalante, Physician on 02/06/2017 08:59 RR/
--- NOTE | 2017-02-06 10:35 | PN ---
Date/Time of Note Date/Time of Note DATE: 02/06/17 TIME: 10:32 Assessment/Plan VTE Prophylaxis VTE Prophylaxis Intervention: ambulation Lines/Catheters IV C[facility] Saline Lock Central line still needed: No Urinary Cath still in place: No Assessment/Plan Chief Complaint/Hosp Course Abdominal examination remains benign CT scan yesterday shows a 5 cm right lower quadrant abscess. CT-guided drainage has been ordered for today however radiology states that it cannot be done until Thursday 02/08 Plan: Continue medical management and IV antibiotics. Awaiting CT drainage. Problems: Subjective 24 Hr Interval Summary Free Text/Dictation Postoperative day #4 Patient has been afebrile for 24 hours Leukocytosis has resolved with resolution of left shift Exam/Review of Systems Vital Signs Vitals Vital Signs Date Time Temp Pulse Resp B/P Pulse Ox O2 Delivery O2 Flow Rate FiO2 02/06/17 08:20 98.5 58 20 121/70 96 02/04/17 09:00 Nasal Cannula 2.0 Intake and Output 02/05/17 02/05/17 02/06/17 15:00 23:00 07:00 Intake Total 450 ml 1760 ml 600 ml Output Total 600 ml Balance 450 ml 1160 ml 600 ml Results Result Diagram: 02/06/17 0508 02/03/17 0548 Results 24 hrs Laboratory Tests Test 02/05/17 10:53 02/06/17 05:08 White Blood Count 7.5 # 6.3 Red Blood Count 4.16 L 3.89 L Hemoglobin 12.2 L 11.8 L Hematocrit 37.7 L 35.3 L Mean Corpuscular Volume 90.6 90.7 Mean Corpuscular Hemoglobin 29.3 30.3 Mean Corpuscular Hemoglobin Concent 32.4 33.4 Red Cell Distribution Width 13.0 13.1 Platelet Count 177 197 Mean Platelet Volume 11.0 H 11.4 H Neutrophils % 77.6 H 69.6 Lymphocytes % 12.5 L 18.5 Monocytes % 9.0 10.0 Eosinophils % 0.3 1.1 Basophils % 0.3 0.3 Nucleated Red Blood Cells % 0.0 0.0 Neutrophils # 5.9 4.4 Lymphocytes # 0.9 1.2 Monocytes # 0.7 0.6 Eosinophils # 0.0 0.1 Basophils # 0.0 0.0 Nucleated Red Blood Cells # 0.0 0.0 Medications Medications Current Medications Acetaminophen (Tylenol Tab) 650 mg Q6H PRN PO PAIN LEVEL 1-3 OR FEVER Last administered on 02/04/17 22:17; Admin Dose 650 MG; Start 02/02/17 at 13:30 Acetaminophen/ Hydrocodone Bitart ([place] (5/325)) 1 tab Q6H PRN PO MODERATE PAIN LEVEL 4-6; Start 02/02/17 at 13:30 Morphine Sulfate (morphine) 2 mg Q4H PRN IV SEVERE PAIN LEVEL 7-10; Start at 13:30 Docusate Sodium (Colace) 100 mg Q12H PRN PO CONSTIPATION; Start 02/02/17 at 13 :30 Magnesium Hydroxide (Milk Of Mag) 30 ml DAILY PRN PO CONSTIPATION; Start 02/02 at 13:30 Bisacodyl (Dulcolax) 5 mg DAILY PRN PO CONSTIPATION; Start 02/02/17 at 13:30 Oxycodone/ Acetaminophen (Percocet (5/ 325)) 1 tab Q4H PRN PO MILD PAIN (1-3); Start 02/02/17 at 18:30 Oxycodone/ Acetaminophen (Percocet (5/ 325)) 2 tab Q4H PRN PO MODERATE PAIN (4- 6) Last administered on 02/03/17 19:21; Admin Dose 2 TAB; Start 02/02/17 at 18 :30 Ondansetron HCl 4 mg 4 mg Q6H PRN IV NAUSEA; Start 02/02/17 at 18:30 Piperacillin Sod/ Tazobactam Sod (Zosyn 3.375gm/ 50 ml (Pmx)) 50 ml @ 100 mls/ hr Q8 IVPB Last administered on 02/06/17 05:44; Admin Dose 100 MLS/HR; Start 02/04/17 at 22:00 JASON SMITH MD Feb 06, 2017 10:35
--- NOTE | 2017-02-06 11:11 | PN ---
Date/Time of Note Date/Time of Note DATE: 02/06/17 TIME: 11:09 Assessment/Plan VTE Prophylaxis VTE Prophylaxis Intervention: SCD's Lines/Catheters IV Catheter Type (from Nrsg): Saline Lock Urinary Cath still in place: No Assessment/Plan Assessment/Plan 46 yo M presented with abd pain, found to have appendicitis with localized peritonitis. sp lap appy 02.02. Hospitalization notable for persistent fevers. F /u abd imaging with abscess PLAN for abd abscess, per IR location not amenable to drainage. defer to general surgery to coordinate drainage cont abx regular diet pain control DVT prophx Subjective 24 Hr Interval Summary Free Text/Dictation feels ok. states he was told abt his abd abscess Exam/Review of Systems Vital Signs Vitals Vital Signs Date Time Temp Pulse Resp B/P Pulse Ox O2 Delivery O2 Flow Rate FiO2 02/06/17 08:20 98.5 58 20 121/70 96 02/04/17 09:00 Nasal Cannula 2.0 Intake and Output 02/05/17 02/05/17 02/06/17 15:00 23:00 07:00 Intake Total 450 ml 1760 ml 600 ml Output Total 600 ml Balance 450 ml 1160 ml 600 ml Exam nad no mrg lungs clear abd soft no rashes Results Result Diagram: 02/06/17 0508 02/03/17 0548 Results 24 hrs Laboratory Tests Test 02/06/17 05:08 White Blood Count 6.3 Red Blood Count 3.89 L Hemoglobin 11.8 L Hematocrit 35.3 L Mean Corpuscular Volume 90.7 Mean Corpuscular Hemoglobin 30.3 Mean Corpuscular Hemoglobin Concent 33.4 Red Cell Distribution Width 13.1 Platelet Count 197 Mean Platelet Volume 11.4 H Neutrophils % 69.6 Lymphocytes % 18.5 Monocytes % 10.0 Eosinophils % 1.1 Basophils % 0.3 Nucleated Red Blood Cells % 0.0 Neutrophils # 4.4 Lymphocytes # 1.2 Monocytes # 0.6 Eosinophils # 0.1 Basophils # 0.0 Nucleated Red Blood Cells # 0.0 Medications Medications Current Medications Acetaminophen (Tylenol Tab) 650 mg Q6H PRN PO PAIN LEVEL 1-3 OR FEVER Last administered on 02/04/17t 22:17; Admin Dose 650 MG; Start 02/02/17 at 13:30 Acetaminophen/ Hydrocodone Bitart ([place] (5/325)) 1 tab Q6H PRN PO MODERATE PAIN LEVEL 4-6; Start 02/02/17 at 13:30 Morphine Sulfate (morphine) 2 mg Q4H PRN IV SEVERE PAIN LEVEL 7-10; Start at 13:30 Docusate Sodium (Colace) 100 mg Q12H PRN PO CONSTIPATION; Start 02/02/17 at 13 :30 Magnesium Hydroxide (Milk Of Mag) 30 ml DAILY PRN PO CONSTIPATION; Start 02/02 at 13:30 Bisacodyl (Dulcolax) 5 mg DAILY PRN PO CONSTIPATION; Start 02/02/17 at 13:30 Oxycodone/ Acetaminophen (Percocet (5/ 325)) 1 tab Q4H PRN PO MILD PAIN (1-3); Start 02/02/17 at 18:30 Oxycodone/ Acetaminophen (Percocet (5/ 325)) 2 tab Q4H PRN PO MODERATE PAIN (4- 6) Last administered on 02/03/17 19:21; Admin Dose 2 TAB; Start 02/02/17 at 18 :30 Ondansetron HCl 4 mg 4 mg Q6H PRN IV NAUSEA; Start 02/02/17 at 18:30 Piperacillin Sod/ Tazobactam Sod (Zosyn 3.375gm/ 50 ml (Pmx)) 50 ml @ 100 mls/ hr Q8 IVPB Last administered on 02/06/17 05:44; Admin Dose 100 MLS/HR; Start 02/04/17 at 22:00 STORM SLATER MD Feb 06, 2017 11:11
[2017-02-06 14:50] VITALS: BP_SYST 103; BP_SYST 118; BP_DIAS 63; BP_DIAS 73; RESP 20
[2017-02-06 20:10] VITALS: BP 107/65; PULSE 71; RESP 18
[2017-02-07] MEDS: ACETAMINOPHEN 325 MG TAB PO PRN (01:25)
[2017-02-07 01:40] VITALS: BP 123/71; RESP 18
[2017-02-07] MEDS: PIPER-TAZO 3.375 GM IV (PMX) 50 ML IVPB SCH ×3 (06:26→21:30)
[2017-02-07 07:39] VITALS: BP 116/66; RESP 16
--- NOTE | 2017-02-07 07:40 | PN ---
Date/Time of Note Date/Time of Note DATE: 02/07/17 TIME: 07:39 Assessment/Plan Lines/Catheters IV Catheter Type (from [facility]): Saline Lock Epna in Place (from [facility]): No Assessment/Plan Chief Complaint/Hosp Course Abdominal examination remains benign CT scan yesterday shows a 5 cm right lower quadrant abscess. CT-guided drainage has been ordered for today however radiology states that it cannot be done until Thursday 02/08 Plan: Continue medical management and IV antibiotics. Awaiting CT drainage. Problems: Assessment/Plan For CT drainage of abscess tomorrow Subjective 24 Hr Interval Summary Postoperative day #5 Afebrile for 48 hours Abdominal examination is benign Exam/Review of Systems Vital Signs Vitals Vital Signs Date Time Temp Pulse Resp B/P Pulse Ox O2 Delivery O2 Flow Rate FiO2 02/07/17 01:40 98.7 51 18 123/71 97 02/06/17 20:10 Room Air 02/04/17 09:00 2.0 Intake and Output 02/06/17 02/06/17 02/07/17 15:00 23:00 07:00 Intake Total 50 ml 50 ml 300 ml Output Total 800 ml Balance 50 ml 50 ml -500 ml Results Result Diagram: 02/06/17 0508 02/03/17 0548 JASON SMITH MD Feb 07, 2017 07:40
[2017-02-07 15:11] VITALS: BP 102/59; RESP 14
--- NOTE | 2017-02-07 16:25 | PN ---
Date/Time of Note Date/Time of Note DATE: 02/07/17 TIME: 16:21 Assessment/Plan VTE Prophylaxis VTE Prophylaxis Intervention: SCD's Lines/Catheters IV Catheter Type (from Nrsg): Saline Lock Urinary Cath still in place: No Assessment/Plan Assessment/Plan 46 yo M presented with abd pain, found to have appendicitis with localized peritonitis. sp lap appy 02.02. Hospitalization notable for persistent fevers. F /u abd imaging with abscess PLAN for abd abscess, IR to drain in AM cont abx regular diet pain control DVT prophx Subjective 24 Hr Interval Summary Free Text/Dictation IR to drain abscess in AM Exam/Review of Systems Vital Signs Vitals Vital Signs Date Time Temp Pulse Resp B/P Pulse Ox O2 Delivery O2 Flow Rate FiO2 02/07/17 15:11 98.3 64 14 102/59 97 02/06/17 20:10 Room Air 02/04/17 09:00 2.0 Intake and Output 02/06/17 02/06/17 02/07/17 15:00 23:00 07:00 Intake Total 50 ml 50 ml 300 ml Output Total 800 ml Balance 50 ml 50 ml -500 ml Exam nad resp nonlabored no abd distension no rashes no edema Results Result Diagram: 02/06/17 0508 02/03/17 0548 Medications Medications Current Medications Acetaminophen (Tylenol Tab) 650 mg Q6H PRN PO PAIN LEVEL 1-3 OR FEVER Last administered on 02/07/17t 01:25; Admin Dose 650 MG; Start 02/02/17 at 13:30 Acetaminophen/ Hydrocodone Bitart ([place] (5/325)) 1 tab Q6H PRN PO MODERATE PAIN LEVEL 4-6; Start 02/02/17 at 13:30 Morphine Sulfate (morphine) 2 mg Q4H PRN IV SEVERE PAIN LEVEL 7-10; Start at 13:30 Docusate Sodium (Colace) 100 mg Q12H PRN PO CONSTIPATION; Start 02/02/17 at 13 :30 Magnesium Hydroxide (Milk Of Mag) 30 ml DAILY PRN PO CONSTIPATION; Start 02/02 at 13:30 Bisacodyl (Dulcolax) 5 mg DAILY PRN PO CONSTIPATION; Start 02/02/17 at 13:30 Oxycodone/ Acetaminophen (Percocet (5/ 325)) 1 tab Q4H PRN PO MILD PAIN (1-3); Start 02/02/17 at 18:30 Oxycodone/ Acetaminophen (Percocet (5/ 325)) 2 tab Q4H PRN PO MODERATE PAIN (4- 6) Last administered on 02/03/17 19:21; Admin Dose 2 TAB; Start 02/02/17 at 18 :30 Ondansetron HCl 4 mg 4 mg Q6H PRN IV NAUSEA; Start 02/02/17 at 18:30 Piperacillin Sod/ Tazobactam Sod (Zosyn 3.375gm/ 50 ml (Pmx)) 50 ml @ 100 mls/ hr Q8 IVPB Last administered on 02/07/17 14:01; Admin Dose 100 MLS/HR; Start 02/04/17 at 22:00 STORM SLATER MD Feb 07, 2017 16:25
[2017-02-07 19:40] VITALS: BP 105/62; RESP 20
[2017-02-08 02:16] VITALS: BP 111/70; RESP 20
[2017-02-08] MEDS: PIPER-TAZO 3.375 GM IV (PMX) 50 ML IVPB SCH (06:04)
[2017-02-08 07:47] VITALS: BP 125/68; RESP 20
[2017-02-08] MEDS ORDERED: SOD CHLORIDE 0.9% 100 ML ONE (10:05)
[2017-02-08] MEDS ORDERED: IOHEXOL 300MG/ML 150 ML BTL ONE (10:05)
[2017-02-08] MEDS ORDERED: IOHEXOL 14.3 MG(I)/ML (ADULT) BTL PO SCH (10:30)
--- NOTE | 2017-02-08 11:00 | PDOCDIS ---
Discharge Instructions CONDITION Patient Condition: Stable HOME CARE INSTRUCTIONS: Special Diet: REGULAR DIET ACTIVITY: Activity Restrictions: Slowly Increase Activity FOLLOW UP/APPOINTMENTS Follow-up Plan Please take your medications as prescribed. If you develop any abdominal pain or fevers, please go to the ER, call 911, or call your primary care doctor. Please see your primary care doctor and surgeon in the clinic in the next 1 week for follow-up. JANE GAONA Feb 08, 2017 11:00
[2017-02-08] MEDS ORDERED: HYDR-3498 PO (11:01)
[2017-02-08] MEDS ORDERED: METR500T14 PO (11:01)
[2017-02-08] MEDS ORDERED: CIPR500T4 PO (11:01)
--- NOTE | 2017-02-08 11:01 | PN ---
Date/Time of Note Date/Time of Note DATE: 02/08/17 TIME: 11:00 Assessment/Plan Lines/Catheters IV Catheter Type (from [facility]): Saline Lock Pena in Place (from [facility]): No Assessment/Plan Chief Complaint/Hosp Course Abdominal examination remains benign CT scan yesterday shows a 5 cm right lower quadrant abscess. CT-guided drainage has been ordered for today however radiology states that it cannot be done until Thursday 02/08 Plan: Continue medical management and IV antibiotics. Awaiting CT drainage. Problems: Assessment/Plan CT scan according to my discussion with Dr. Sherman earlier this morning shows an abscess which is not accessible by CT. We will therefore discharge the patient with p.o. pain medications and antibiotics with outpatient follow-up in [address] in 2 weeks Subjective 24 Hr Interval Summary Postoperative day #6 Patient remains afebrile and asymptomatic Exam/Review of Systems Vital Signs Vitals Vital Signs Date Time Temp Pulse Resp B/P Pulse Ox O2 Delivery O2 Flow Rate FiO2 02/08/17 07:47 98.4 55 20 125/68 96 02/06/17 20:10 Room Air 02/04/17 09:00 2.0 Intake and Output 02/07/17 02/07/17 02/08/17 15:00 23:00 07:00 Intake Total 50 ml 2100 ml 290 ml Output Total 400 ml 650 ml Balance 50 ml 1700 ml -360 ml Results Result Diagram: 02/06/17 0508 JASON SMITH MD Feb 08, 2017 11:01
--- NOTE | 2017-02-08 11:29 | RADRPT ---
PROCEDURE: CT Abdomen and Pelvis with contrast. CLINICAL INDICATION: Abdomen and pelvis pain. Previous appendectomy. Right lower quadrant abscess. TECHNIQUE: CT scan of the abdomen and pelvis with contrast was performed. The patient was scanned following the uncomplicated intravenous administration of 100 cc of Omnipaque-300. Coronal and sag ittal reformatted images were obtained from the axial source images. Images were reviewed on a high- resolution PACS workstation. Total exam DLP is 614.36 mGy-cm. CTDIvol is 10.70 mGy. One or more o f the following dose reduction techniques were used: Automated exposure control, adjustment of the m A and/or kV according to patient size, use of iterative reconstruction technique. COMPARISON: 02/05/2017. FINDINGS: There is a very small right pleural effusion. There is no left pleural effusion. Mild atelectasis is present at the lung bases posteriorly, improved. The liver is normal in size and attenuation. There is no focal hepatic lesion. The gallbladder and bile ducts are normal. The spleen is normal in size. There is no focal splenic lesion. Both adrenals are normal with no enlargement or mass. The pancreas is unremarkable with no mass or evidence of pancreatitis. Both kidneys demonstrate normal contrast enhancement. There is no renal mass or hydronephrosis. The abdominal aorta is not dilated. There is no retroperitoneal lymphadenopathy or mass. There is no pelvic lymphadenopathy or mass. The bladder and distal ureters are normal. The appendix is surgically absent. There is a fluid collection consistent with abscess in the right lower quadrant adjacent to the surgical clips measuring 3.4 x 4.2 cm, similar to the prior study. Th ere is no other fluid collection or mass. The bowel and mesentery are otherwise normal. There is no free air. Anterior abdominal wall skin keke are noted. The osseous structures are unremarkable with no fracture or lytic lesion. IMPRESSION: 1. Right lower quadrant abscess, similar to the prior study at the site of prior appendectomy. 2. Postoperative changes. 3. Otherwise unremarkable CT scan of the abdomen and pelvis. Call report: A call report of the findings was made to Dr. Ness on 02/05/1970 at 1040 hours. RPTAT: QQ .Shay Sherman MD, Date Time Electronically viewed and signed by .Shay Shermna MD, on 02/08/2017 11:29 .R/
--- NOTE | 2017-02-08 16:19 | DS ---
DATE OF ADMISSION: 02/02/2017 DATE OF DISCHARGE: 02/08/2017 HISTORY OF PRESENT ILLNESS: The patient came in with abdominal pain. Imaging study showed appendicitis. The patient was admitted and seen by surgery team during this hospital stay. HOSPITAL COURSE: Patient underwent laparoscopic appendectomy. Afterwards the patient did have some slight leukocytosis and fevers. CT abdomen pelvis after the procedure, performed on 02/05/2017 and did show a right lower quadrant abscess about 3 x 4 x 5 cm. The patient was placed on broad-spectrum antibiotics. Over the course of the hospital stay, leukocytosis improved. He had no fevers the last for four or five days prior to discharge. He was ambulating and tolerated a p.o. diet. Interventional Radiology was called to attempt a possible CT-guided drainage of the abscess. However, the interventional radiologist mentioned to the surgeon that the abscess was too small to be drained and because the patient was clinically improving, after discussion with surgery team, they indicated that the patient was safe for discharge. Drain was taken out. The patient was recommended to go home with antibiotics, so he will be discharged home today in good condition. He has also been given strict return precautions. DISCHARGE MEDICATIONS: 1. He will go home with Cipro 500 mg p.o. b.i.d. for 7 days. 2. [place] 5/325 one tab p.o. q.6 p.r.n. 3. Flagyl 500 mg p.o. t.i.d. for 7 days. FOLLOWUP: He will need to follow up with primary care doctor and surgery team in the clinic the next 1-2 weeks. FINAL DIAGNOSES: 1. Abdominal pain secondary to appendicitis, status post laparoscopic appendectomy with postop abscess now resolving with IV antibiotics and no fevers. LABORATORY DATA: Of note, body fluid culture did show positive Citrobacter, Klebsiella and gamma hemolytic strep species, sensitive to antibiotics. Also Bacteroides was an anaerobic culture as well. But again, patient clinically improving. Time spent discharging the patient 45 minutes. Dictated By: Meet Brewer MD /[email or web address] /Document#: [id number]
== END 2017-02-08 12:45 | disposition home or self-care (01) | DRG 340 ==
LOC: FTE 07:32 → MS2 10:16
PROVIDERS: ADMIT Internal Medicine; ATTEND Internal Medicine
PROC: 0DTJ4ZZ Resection of Appendix, Percutaneous Endoscopic Approach (ICD-10-PCS; principal; 2017-02-02 17:30)
DX: K35.3 Acute appendicitis with localized peritonitis (principal)
CPT/HCPCS: 36415; 74176; 74177; 80048; 80053; 81003; 83690; 85025; 87070; 87075; 88304; 96374; 96375; C9250; J0690; J0696; J2175; J2270; J2543; J2710; J7030; Q9967

== ENCOUNTER → 2017-03-03 | Outpatient (CLI) | payer MEDICAID ==
[~2017-03-03] MED LIST: BARIUM SULF 2% 450 ML BTL (BERRY SMOOTHIE) PO ONE; CIPR500T4 PO; HYDR-3498 PO; IOHEXOL 300MG/ML 150 ML BTL ONE; METR500T14 PO; SOD CHLORIDE 0.9% 100 ML ONE
--- NOTE | 2017-03-04 13:50 | RADRPT ---
PROCEDURE: CT ABDOMEN AND PELVIS WITH IV CONTRAST. CLINICAL INDICATION: Follow-up right lower quadrant abscess TECHNIQUE: CT scan of the abdomen and pelvis without contrast was performed on a multidetector hig h-resolution CT scanner following the use of IV contrast. 100 cc Omnipaque-300 was administered. Cor onal and sagittal reformatted images were obtained from the axial source images. Images were reviewe d on a high-resolution PACS workstation. The total exam CTDI equals 9.2 mGy and the total exam DLP e quals 529 mGy-cm. One or more of the following dose reduction techniques were used: Automated exposure control. Adjustment of the mA and/or kV according to patient size. Use of iterative reconstruction technique. DICOM images are available. COMPARISON: CT 02/08/2017 FINDINGS: CT abdomen: Lung bases are clear. Heart size is enlarged. No significant pericardial effusion. Hepatic morphology is within normal limits. No gross contour deforming masses. The gallbladder is wi thin normal limits. No evidence of intrahepatic or extrahepatic biliary dilatation. The spleen and pancreas are within normal limits. Both adrenal glands are within normal limits. Both kidneys are in normal anatomic position. No evidence of obstruction or hydronephrosis. No gross renal/ureteric calculi. The visualized GI tract demonstrate normal caliber loops of small and large bowel. No evidence of ailyn wel obstruction. Status post appendectomy. There is complete resolution of previously noted right lo wer quadrant focal fluid collection. The aorta is within normal limits. No significant retroperitoneal lymphadenopathy. CT pelvis: The bladder is within limits. Prostate is normal size. Small fat-containing bilateral hernias. No si gnificant free fluid. No significant pelvic lymphadenopathy. The visualized osseous structures, appears to be within normal limits. IMPRESSION: 1. No evidence of acute intra-abdominal/pelvic inflammatory process. No evidence of bowel obstructio n. 2. Status post appendectomy. There is complete resolution of previously noted right lower quadrant f ocal fluid collection. 3. Otherwise, unremarkable CT scan of the abdomen/pelvis. RPTAT: [facility]APP Physician Temitope Date Time Electronically viewed and signed by Physician Temitope on 03/04/2017 13:50 JL/
== END | disposition home or self-care (01) ==
LOC: C/S 09:58
PROVIDERS: ATTEND Surgery
DX: L02.211 Cutaneous abscess of abdominal wall (principal)
CPT/HCPCS: 74177; Q9967; Z7610